=== PATIENT | male | born 1950 | race Asian ===

== ENCOUNTER 2021-12-15 17:45 | Outpatient (CLI) | payer MEDICARE ==
[2021-12-15 18:22] LABS: Hemoglobin 14.7 g/dL (13.5-17.5)
[2021-12-15 18:36] LABS: Anion Gap 15 mmol/L (10-20); BUN (Urea Nitrogen) 17 mg/dL (8.4-25.7); Calc. Creatinine Clearance 0 mL/min (70-130); Carbon Dioxide 26 mmol/L (23-31); Chloride 101 mmol/L (98-107); Glucose 153 mg/dL (80-115); Potassium 3.8 mmol/L (3.5-5.1); Sodium 138 mmol/L (136-145)
[2021-12-16 18:37] LABS: SARS-CoV-2 PCR by NAA Not Detected (NotDetected)
== END 2021-12-15 17:46 | disposition home or self-care (01) ==
LOC: LABBT 17:45
PROVIDERS: ATTEND Specialist
DX: Z01.818 Encounter for other preprocedural examination (principal); J34.2 Deviated nasal septum; J34.3 Hypertrophy of nasal turbinates; Z20.822 Contact with and (suspected) exposure to COVID-19
CPT/HCPCS: 80048; 85014; 85018; U0003; U0005; 93005; 93010

== ENCOUNTER 2021-12-22 07:43 | Outpatient (CLI) | payer MEDICARE ==
[2021-12-23 11:50] LABS: SARS-CoV-2 PCR by NAA Not Detected (NotDetected)
== END 2021-12-22 07:44 | disposition home or self-care (01) ==
LOC: LABBT 07:43
PROVIDERS: ATTEND Specialist
DX: Z01.812 Encounter for preprocedural laboratory examination (principal); R13.12 Dysphagia, oropharyngeal phase; Z20.822 Contact with and (suspected) exposure to COVID-19
CPT/HCPCS: U0003; U0005

== ENCOUNTER 2021-12-25 06:49 | Day surgery (SDC) | payer MEDICARE ==
[2021-12-15 14:39] VITALS: BMI 23.0
[2021-12-25] MEDS ORDERED: Fentanyl 100 MCG/2 ML VIAL ONE ×2 (07:01→10:08)
[2021-12-25] MEDS ORDERED: Lidocaine 4% Topical Sol 50 ML BOT ONE (07:07)
[2021-12-25] MEDS ORDERED: AFRIN NASAL MIST 15 ML BOT ONE ×3 (07:59→09:34)
[2021-12-25] MEDS ORDERED: EPINEPHrine 1 MG/ML AMP ONE ×2 (08:01→09:34)
[2021-12-25] MEDS ORDERED: Xylocaine 1% w/ Epi 1:100K 10 ML VIAL ONE ×2 (08:01→09:34)
[2021-12-25] MEDS ORDERED: Bacitracin Zinc Ointment 30 gm TUBE ONE (08:01)
[2021-12-25] MEDS ORDERED: Glycopyrrolate 0.2 MG/ML 5 ML SYRINGE ONE ×2 (08:44)
[2021-12-25] MEDS ORDERED: PHENYLEPHRINE-NS 100 MCG/ML 10 ML SYRINGE ONE (08:44)
[2021-12-25] MEDS ORDERED: PROPOFOL 200 MG/20 ML VIAL ONE (08:44)
[2021-12-25] MEDS ORDERED: Dexamethasone 20 MG/5 ML VIAL ONE (08:44)
[2021-12-25] MEDS ORDERED: Ondansetron PF 4 MG/2 ML Vial ONE (08:44)
[2021-12-25] MEDS ORDERED: Lidocaine 1% PF 5 ML VIAL ONE (08:44)
== END 2021-12-25 12:45 | disposition home or self-care (01) ==
LOC: SDC 06:49
PROVIDERS: ATTEND Specialist
PROC: 09SM0ZZ Reposition Nasal Septum, Open Approach (ICD-10-PCS; principal; 2021-12-25)
PROC: 09TL8ZZ Resection of Nasal Turbinate, Via Natural or Artificial Opening Endoscopic (ICD-10-PCS; 2021-12-25)
DX: J34.2 Deviated nasal septum (principal); J34.3 Hypertrophy of nasal turbinates; I10 Essential (primary) hypertension; M10.9 Gout, unspecified; E11.9 Type 2 diabetes mellitus without complications; Z87.891 Personal history of nicotine dependence; Z79.84 Long term (current) use of oral hypoglycemic drugs; Z79.899 Other long term (current) drug therapy
CPT/HCPCS: J0171; J1100; J2405; J2704; J3010

== ENCOUNTER 2022-01-14 10:52 | Outpatient (CLI) | payer MEDICARE | END 2022-01-14 10:53 | disposition home or self-care (01) | PROVIDERS: ATTEND Family Medicine | DX: R13.13 Dysphagia, pharyngeal phase (principal); R63.30 Feeding difficulties, unspecified | CPT/HCPCS: 74230 ==

== ENCOUNTER 2022-09-18 13:34 | Inpatient (IN) | payer MEDICARE, OTHER ==
[2022-09-18] MEDS ORDERED: HumaLOG 300 UNITS/3 ML VIAL SC PRN (21:29)
[2022-09-18] MEDS ORDERED: Dextrose 50% Abboject 50 ML SYRINGE SLOW IVP PRN (21:29)
[2022-09-18] MEDS ORDERED: Dextrose 5% in Water 1,000 ML IV PRN (21:29)
[2022-09-18] MEDS ORDERED: Enoxaparin Sodium 40 MG/0.4 ML SYRINGE SC SCH (21:30)
[2022-09-18] MEDS ORDERED: Amlodipine 5 MG TAB PO SCH (22:30)
[2022-09-18] MEDS ORDERED: guaiFENesin/DM ER PO SCH (22:30)
[2022-09-18] MEDS ORDERED: Meropenem 1 GM in Sodium Chloride 0.9% 100 ML IVPB SCH (22:45)
[2022-09-19] MEDS: Azithromycin 500 MG in Sodium Chloride 0.9% 250 ML 250 ML IVPB SCH (00:51)
[2022-09-19] MEDS ORDERED: Meropenem 1 GM in Sodium Chloride 0.9% 100 ML IVPB SCH (01:00)
[2022-09-19 04:03] LABS: Hemoglobin 11.7 g/dL (14.0-18.0); Mean Corpuscular HGB CONC 32.9 g/dL (32.0-36.0); Mean Corpuscular Hemoglobin 30.3 pg (27.0-31.0); Mean Corpuscular Volume 92.1 fL (78.0-98.0); Platelet Count 383 thou/uL (130-400); RBC Distribution Width 12.3 % (11.5-14.5); Red Blood Cell (RBC) Count 3.85 mill/uL (4.70-6.10)
[2022-09-19 04:16] LABS: Anion Gap 14 mmol/L (10-20); BUN (Urea Nitrogen) 13 mg/dL (8.4-25.7); Calc. Creatinine Clearance 0 mL/min (70-130); Calcium 8.4 mg/dL (7.8-10.44); Carbon Dioxide 22 mmol/L (23-31); Chloride 101 mmol/L (98-107); Estimated GFR 97; Glucose 162 mg/dL (80-115); Potassium 3.6 mmol/L (3.5-5.1); Sodium 133 mmol/L (136-145)
[2022-09-19 04:27] LABS: Band 3 % (5-11); Lymphocytes 3 % (21-51); MDiff Complete? YES; Monocytes 6 % (0-10); Neutrophil 88 % (42-75)
[2022-09-19] MEDS: Meropenem 1 GM in Sodium Chloride 0.9% 100 ML IVPB SCH ×3 (05:48→20:56)
[2022-09-19] MEDS ORDERED: Lactated Ringer's 1,000 ML IV SCH (07:30)
[2022-09-19] MEDS ORDERED: fentaNYL PF 100 MCG/2 ML SYRINGE ONE (07:31)
[2022-09-19] MEDS ORDERED: Phenylephrine 10 MG/ML VIAL ONE (07:32)
[2022-09-19] MEDS ORDERED: Rocuronium Bromide 10 MG/ML (10ML VIAL) ONE (08:00)
[2022-09-19] MEDS ORDERED: Glycopyrrolate 0.2 MG/ML 5 ML SYRINGE ONE (08:00)
[2022-09-19] MEDS ORDERED: NEOSTIGMINE 3 MG/3 ML SYR 3 MG/3 ML SYRINGE ONE (08:00)
[2022-09-19] MEDS ORDERED: PROPOFOL 200 MG/20 ML VIAL ONE (08:00)
[2022-09-19] MEDS ORDERED: EPINEPHrine 1 MG/ML AMP ONE (08:30)
[2022-09-19] MEDS ORDERED: Bupivacaine PF 0.5% 30 ML VIAL ONE (08:30)
[2022-09-19] MEDS ORDERED: traMADol HCl 50 MG TAB PO PRN (09:57)
[2022-09-19] MEDS ORDERED: Fentanyl 100 MCG/2 ML VIAL SLOW IVP PRN ×2 (09:57)
[2022-09-19] MEDS ORDERED: FENTANYL 50 MCG/ML 1 ML VIAL SLOW IVP PRN ×2 (10:04→10:05)
[2022-09-19] MEDS: Ondansetron PF 4 MG/2 ML Vial IVP PRN (10:16)
[2022-09-19] MEDS: HumaLOG 300 UNITS/3 ML VIAL SC PRN (11:20)
[2022-09-19] MEDS: Famotidine 20 MG TAB PO SCH ×2 (14:22→20:56)
[2022-09-19] MEDS: Amlodipine 5 MG TAB PO SCH (14:22)
[2022-09-19] MEDS: traMADol HCl 50 MG TAB PO PRN (14:22)
[2022-09-19] MEDS: Allopurinol 100 MG TAB PO SCH (14:23)
[2022-09-19] MEDS: guaiFENesin/DM ER PO SCH ×2 (14:26→20:56)
[2022-09-19] MEDS: Lactated Ringer's 1,000 ML IV SCH (19:30)
[2022-09-20] MEDS: Azithromycin 500 MG in Sodium Chloride 0.9% 250 ML 250 ML IVPB SCH (00:36)
[2022-09-20 04:00] LABS: #Monocytes 1.2 thou/uL (0.11-0.59); #Neutrophils 16.9 thou/uL (1.40-6.50); %Basophils 0.1 % (0.0-1.0); %Eosinophils 0.2 % (0.0-10.0); %Monocytes 6.1 % (0.0-10.0); %Neutrophils 88.6 % (42.0-75.0); Mean Corpuscular HGB CONC 31.8 g/dL (32.0-36.0); Mean Corpuscular Hemoglobin 29.5 pg (27.0-31.0); Mean Corpuscular Volume 92.9 fL (78.0-98.0); Mean Platelet Volume 7.9 fL (7.4-10.4); Platelet Count 374 thou/uL (130-400); RBC Distribution Width 12.4 % (11.5-14.5); Red Blood Cell (RBC) Count 3.39 mill/uL (4.70-6.10); White Blood Cell (WBC) Count 19.1 thou/uL (4.8-10.8)
[2022-09-20 04:18] LABS: Anion Gap 15 mmol/L (10-20); BUN (Urea Nitrogen) 19 mg/dL (8.4-25.7); Calc. Creatinine Clearance 0 mL/min (70-130); Calcium 8.1 mg/dL (7.8-10.44); Carbon Dioxide 21 mmol/L (23-31); Chloride 101 mmol/L (98-107); Estimated GFR 98; Glucose 137 mg/dL (80-115); Sodium 133 mmol/L (136-145)
[2022-09-20] MEDS: Meropenem 1 GM in Sodium Chloride 0.9% 100 ML IVPB SCH ×3 (06:21→20:42)
[2022-09-20] MEDS: Amlodipine 5 MG TAB PO SCH (09:06)
[2022-09-20] MEDS: guaiFENesin/DM ER PO SCH ×2 (09:06→19:35)
[2022-09-20] MEDS: Enoxaparin Sodium 40 MG/0.4 ML SYRINGE SC SCH (09:06)
[2022-09-20] MEDS: Allopurinol 100 MG TAB PO SCH (09:07)
[2022-09-20] MEDS: Famotidine 20 MG TAB PO SCH ×2 (09:07→19:35)
[2022-09-20] MEDS: HumaLOG 300 UNITS/3 ML VIAL SC PRN ×2 (11:12→18:09)
[2022-09-20] MEDS ORDERED: Sodium Chloride 0.45% 1,000 ML IV SCH (16:45)
[2022-09-20] MEDS: Lactated Ringer's 1,000 ML IV SCH (16:50)
[2022-09-20] MEDS: Ondansetron PF 4 MG/2 ML Vial IVP PRN (19:36)
[2022-09-20] MEDS: Acetaminophen 325 MG TAB PO PRN (20:42)
[2022-09-21 04:03] LABS: #Eosinphils 0.2 thou/uL (0.0-0.7); #Neutrophils 9.2 thou/uL (1.40-6.50); %Basophils 0.4 % (0.0-1.0); %Eosinophils 1.7 % (0.0-10.0); %Lymphocytes 8.4 % (21.0-51.0); %Monocytes 8.5 % (0.0-10.0); Hemoglobin 10.5 g/dL (14.0-18.0); Mean Corpuscular HGB CONC 32.9 g/dL (32.0-36.0); Mean Corpuscular Hemoglobin 30.3 pg (27.0-31.0); Mean Corpuscular Volume 92.2 fL (78.0-98.0); Mean Platelet Volume 7.8 fL (7.4-10.4); Platelet Count 372 thou/uL (130-400); RBC Distribution Width 12.4 % (11.5-14.5); Red Blood Cell (RBC) Count 3.46 mill/uL (4.70-6.10); White Blood Cell (WBC) Count 11.4 thou/uL (4.8-10.8)
[2022-09-21 04:19] LABS: Anion Gap 11 mmol/L (10-20); BUN (Urea Nitrogen) 12 mg/dL (8.4-25.7); Calc. Creatinine Clearance 0 mL/min (70-130); Calcium 7.8 mg/dL (7.8-10.44); Carbon Dioxide 28 mmol/L (23-31); Chloride 100 mmol/L (98-107); Estimated GFR 97; Glucose 135 mg/dL (80-115); Potassium 3.8 mmol/L (3.5-5.1); Sodium 135 mmol/L (136-145)
[2022-09-21] MEDS: Meropenem 1 GM in Sodium Chloride 0.9% 100 ML IVPB SCH (05:38)
[2022-09-21] MEDS: Allopurinol 100 MG TAB PO SCH (08:28)
[2022-09-21] MEDS: Amlodipine 5 MG TAB PO SCH (08:28)
[2022-09-21] MEDS: Enoxaparin Sodium 40 MG/0.4 ML SYRINGE SC SCH (08:29)
[2022-09-21] MEDS: Famotidine 20 MG TAB PO SCH ×2 (08:29→20:18)
[2022-09-21] MEDS ORDERED: Senokot S 8.6-50 MG TAB PO PRN (10:22)
[2022-09-21] MEDS: Lactated Ringer's 1,000 ML IV SCH (10:33)
[2022-09-21] MEDS: HumaLOG 300 UNITS/3 ML VIAL SC PRN ×3 (11:25→20:24)
[2022-09-21] MEDS: traMADol HCl 50 MG TAB PO PRN (11:26)
[2022-09-21 11:37] VITALS: BMI 21.9
[2022-09-21] MEDS: Acetaminophen 325 MG TAB PO PRN (16:42)
[2022-09-21] MEDS: Cefdinir 300 MG CAP PO SCH (20:18)
[2022-09-22 04:42] LABS: #Eosinphils 0.2 thou/uL (0.0-0.7); #Lymphocytes 1.4 thou/uL (1.20-3.40); #Monocytes 0.9 thou/uL (0.11-0.59); #Neutrophils 11.2 thou/uL (1.40-6.50); %Basophils 0.3 % (0.0-1.0); %Eosinophils 1.2 % (0.0-10.0); %Lymphocytes 9.8 % (21.0-51.0); %Monocytes 6.8 % (0.0-10.0); %Neutrophils 81.8 % (42.0-75.0); Hemoglobin 10.8 g/dL (14.0-18.0); Mean Corpuscular HGB CONC 32.3 g/dL (32.0-36.0); Mean Corpuscular Hemoglobin 29.8 pg (27.0-31.0); Mean Corpuscular Volume 92.3 fl (78.0-98.0); Mean Platelet Volume 7.7 fL (7.4-10.4); Platelet Count 437 thou/uL (130-400); RBC Distribution Width 12.5 % (11.5-14.5); Red Blood Cell (RBC) Count 3.64 mill/uL (4.70-6.10); White Blood Cell (WBC) Count 13.7 thou/uL (4.8-10.8)
[2022-09-22 05:03] LABS: Anion Gap 14 mmol/L (10-20); BUN (Urea Nitrogen) 13 mg/dL (8.4-25.7); Calc. Creatinine Clearance 92 mL/min (70-130); Calcium 8.1 mg/dL (7.8-10.44); Carbon Dioxide 26 mmol/L (23-31); Chloride 96 mmol/L (98-107); Estimated GFR 98; Glucose 143 mg/dL (80-115); Potassium 4.1 mmol/L (3.5-5.1); Sodium 132 mmol/L (136-145)
[2022-09-22] MEDS ORDERED: Furosemide 40 MG/4 ML VIAL SLOW IVP SCH (08:15)
[2022-09-22] MEDS: Polyethylene Glycol 3350 17 GM Packet PO SCH (09:14)
[2022-09-22] MEDS: Metoprolol Tartrate 25 MG TAB PO SCH ×2 (09:14→20:06)
[2022-09-22] MEDS: guaiFENesin ER 600 MG TAB PO SCH ×2 (09:14→20:05)
[2022-09-22] MEDS: Famotidine 20 MG TAB PO SCH ×2 (09:14→20:05)
[2022-09-22] MEDS: Allopurinol 100 MG TAB PO SCH (09:14)
[2022-09-22] MEDS: Enoxaparin Sodium 40 MG/0.4 ML SYRINGE SC SCH (09:14)
[2022-09-22] MEDS: Cefdinir 300 MG CAP PO SCH ×2 (09:14→20:05)
[2022-09-22] MEDS ORDERED: Lidocaine 5% Patch TD SCH (10:45)
[2022-09-22] MEDS: metFORMIN 500 MG TAB PO SCH (15:23)
[2022-09-22] MEDS ORDERED: Metoprolol Tartrate 25 MG TAB PO SCH (17:45)
[2022-09-22] MEDS: Transdermal Patch Removal TOP SCH (20:10)
[2022-09-23] MEDS ORDERED: Metoprolol Tartrate 5 MG/5 ML VIAL IVP SCH (09:17)
[2022-09-23] MEDS ORDERED: Metoprolol Tartrate 50 MG TAB PO SCH ×2 (09:30→21:00)
[2022-09-23] MEDS ORDERED: Metoprolol Tartrate 25 MG TAB PO SCH (10:00)
[2022-09-23] MEDS: Lidocaine 5% Patch TD SCH (10:20)
[2022-09-23] MEDS: Cefdinir 300 MG CAP PO SCH ×2 (10:20→20:57)
[2022-09-23] MEDS: Enoxaparin Sodium 40 MG/0.4 ML SYRINGE SC SCH (10:20)
[2022-09-23] MEDS: Famotidine 20 MG TAB PO SCH ×2 (10:21→20:58)
[2022-09-23] MEDS: guaiFENesin ER 600 MG TAB PO SCH ×2 (10:21→20:58)
[2022-09-23] MEDS: Polyethylene Glycol 3350 17 GM Packet PO SCH (10:22)
[2022-09-23] MEDS: Allopurinol 100 MG TAB PO SCH (10:22)
[2022-09-23] MEDS: Metoprolol Tartrate 25 MG TAB PO SCH ×4 (10:27→20:58)
[2022-09-23] MEDS: metFORMIN 500 MG TAB PO SCH (12:52)
[2022-09-23] MEDS: HumaLOG 300 UNITS/3 ML VIAL SC PRN (12:52)
[2022-09-23] MEDS: Transdermal Patch Removal TOP SCH (21:08)
[2022-09-24 04:27] LABS: ALT (SGPT) 79 U/L (8-55); AST (SGOT) 53 U/L (5-34); Albumin 2.4 g/dL (3.4-4.8); Alkaline Phosphatase 469 U/L (40-110); Anion Gap 14 mmol/L (10-20); BUN (Urea Nitrogen) 16 mg/dL (8.4-25.7); Bilirubin, Total 0.6 mg/dL (0.2-1.2); Calc. Creatinine Clearance 87 mL/min (70-130); Calcium 8.2 mg/dL (7.8-10.44); Carbon Dioxide 23 mmol/L (23-31); Chloride 98 mmol/L (98-107); Estimated GFR 97; Globulin 3.9 g/dL (2.4-3.5); Glucose 149 mg/dL (80-115); Protein, Total 6.3 g/dL (5.8-8.1); Sodium 131 mmol/L (136-145)
[2022-09-24 04:42] LABS: #Eosinphils 0.4 thou/uL (0.0-0.7); #Lymphocytes 1.1 thou/uL (1.20-3.40); #Monocytes 1.1 thou/uL (0.11-0.59); %Basophils 0.2 % (0.0-1.0); %Eosinophils 2.8 % (0.0-10.0); %Lymphocytes 8.4 % (21.0-51.0); %Monocytes 7.9 % (0.0-10.0); %Neutrophils 80.7 % (42.0-75.0); Hemoglobin 10.2 g/dL (14.0-18.0); Mean Corpuscular HGB CONC 32.5 g/dL (32.0-36.0); Mean Corpuscular Hemoglobin 29.9 pg (27.0-31.0); Mean Corpuscular Volume 92.1 fl (78.0-98.0); Mean Platelet Volume 7.6 fL (7.4-10.4); Platelet Count 473 thou/uL (130-400); RBC Distribution Width 12.8 % (11.5-14.5); White Blood Cell (WBC) Count 13.7 thou/uL (4.8-10.8)
[2022-09-24] MEDS: Metoprolol Tartrate 25 MG TAB PO SCH ×4 (04:57→20:32)
[2022-09-24] MEDS: HumaLOG 300 UNITS/3 ML VIAL SC PRN ×2 (06:05→11:42)
[2022-09-24] MEDS: Lidocaine 5% Patch TD SCH (09:40)
[2022-09-24] MEDS: Enoxaparin Sodium 40 MG/0.4 ML SYRINGE SC SCH (09:41)
[2022-09-24] MEDS: Famotidine 20 MG TAB PO SCH ×2 (09:41→20:32)
[2022-09-24] MEDS: guaiFENesin ER 600 MG TAB PO SCH ×2 (09:41→20:32)
[2022-09-24] MEDS: Allopurinol 100 MG TAB PO SCH (09:41)
[2022-09-24] MEDS: Polyethylene Glycol 3350 17 GM Packet PO SCH (09:41)
[2022-09-24] MEDS: Cefdinir 300 MG CAP PO SCH ×2 (09:41→20:32)
[2022-09-24] MEDS: metFORMIN 500 MG TAB PO SCH (11:25)
[2022-09-24] MEDS: Transdermal Patch Removal TOP SCH (20:32)
[2022-09-25] MEDS: Metoprolol Tartrate 25 MG TAB PO SCH ×3 (04:27→16:12)
[2022-09-25] MEDS: Cefdinir 300 MG CAP PO SCH (09:22)
[2022-09-25] MEDS: Allopurinol 100 MG TAB PO SCH (09:22)
[2022-09-25] MEDS: Polyethylene Glycol 3350 17 GM Packet PO SCH (09:22)
[2022-09-25] MEDS: guaiFENesin ER 600 MG TAB PO SCH (09:22)
[2022-09-25] MEDS: Enoxaparin Sodium 40 MG/0.4 ML SYRINGE SC SCH (09:22)
[2022-09-25] MEDS: Lidocaine 5% Patch TD SCH (09:22)
[2022-09-25] MEDS: Famotidine 20 MG TAB PO SCH (09:22)
[2022-09-25] MEDS: metFORMIN 500 MG TAB PO SCH (12:30)
[2022-09-25] MEDS: HumaLOG 300 UNITS/3 ML VIAL SC PRN (12:30)
[2022-09-25 12:52] VITALS: BP 124/62; TEMP 98.2
== END 2022-09-25 16:30 | disposition home or self-care (01) | DRG 853 ==
LOC: CCU 19:15 → 2NO 09-21 22:52
PROVIDERS: ADMIT Internal Medicine; ATTEND Family Medicine
PROC: 0BNK0ZZ Release Right Lung, Open Approach (ICD-10-PCS; principal; 2022-09-20)
DX: A41.9 Sepsis, unspecified organism (principal); J18.9 Pneumonia, unspecified organism; J86.9 Pyothorax without fistula; J96.01 Acute respiratory failure with hypoxia; J90 Pleural effusion, not elsewhere classified; I10 Essential (primary) hypertension; E78.5 Hyperlipidemia, unspecified; E11.9 Type 2 diabetes mellitus without complications; M10.9 Gout, unspecified; R13.10 Dysphagia, unspecified; K21.9 Gastro-esophageal reflux disease without esophagitis; Z79.84 Long term (current) use of oral hypoglycemic drugs; Z79.899 Other long term (current) drug therapy
CPT/HCPCS: 36415; 36416; 71045; 80048; 80053; 85025; 87070; 87077; 87186; 87205; 93005; 93010; 93306; 94640; J0171; J0456; J1650; J1815; J1940; J2185; J2370; J2405; J2704; J3490; J7050; J7120; J7620; S0020; U0003; U0005

== ENCOUNTER 2022-12-04 09:11 | Inpatient (IN) | payer OTHER, MEDICARE ==
[2022-12-04] MEDS ORDERED: Iopamidol-370 76% 500 ML 1 ML ONE (10:22)
[2022-12-04] MEDS ORDERED: levETIRAcetam 500 MG/5 ML VIAL ONE (10:36)
[2022-12-04] MEDS ORDERED: Pantoprazole 40 MG VIAL ONE (10:39)
[2022-12-04] MEDS ORDERED: Dextrose 5% in Water 1,000 ML IV PRN (12:33)
[2022-12-04] MEDS ORDERED: Dextrose 50% Abboject 50 ML SYRINGE SLOW IVP PRN (12:33)
[2022-12-04] MEDS: Sodium Chloride 0.9% 1,000 ML IV SCH (13:31)
[2022-12-04] MEDS: Famotidine/PF 20 mg/2ml Vial SLOW IVP SCH (20:49)
[2022-12-05] MEDS: Sodium Chloride 0.9% 1,000 ML IV SCH (01:45)
[2022-12-05 05:47] LABS: #Lymphocytes 1.5 thou/uL (1.20-3.40); #Monocytes 0.7 thou/uL (0.11-0.59); #Neutrophils 6.3 thou/uL (1.40-6.50); %Basophils 0.3 % (0.0-1.0); %Eosinophils 0.3 % (0.0-10.0); %Lymphocytes 17.5 % (21.0-51.0); %Monocytes 7.6 % (0.0-10.0); %Neutrophils 74.3 % (42.0-75.0); Hemoglobin 12.3 g/dL (14.0-18.0); Mean Corpuscular HGB CONC 33.6 g/dL (32.0-36.0); Mean Corpuscular Hemoglobin 29.6 pg (27.0-31.0); Mean Platelet Volume 7.4 fL (7.4-10.4); Platelet Count 264 10x3/uL (130-400); RBC Distribution Width 15.9 % (11.5-14.5); Red Blood Cell (RBC) Count 4.16 mill/uL (4.70-6.10); White Blood Cell (WBC) Count 8.5 10x3/uL (4.8-10.8)
[2022-12-05 06:13] LABS: ALT (SGPT) 16 U/L (8-55); AST (SGOT) 12 U/L (5-34); Albumin 3.5 g/dL (3.4-4.8); Alkaline Phosphatase 79 U/L (40-110); Anion Gap 8 mmol/L (10-20); BUN (Urea Nitrogen) 15 mg/dL (8.4-25.7); Bilirubin, Total 0.5 mg/dL (0.2-1.2); Calc. Creatinine Clearance 88 mL/min (70-130); Calcium 8.6 mg/dL (7.8-10.44); Carbon Dioxide 25 mmol/L (23-31); Chloride 110 mmol/L (98-107); Estimated GFR 97; Globulin 3.6 g/dL (2.4-3.5); Glucose 103 mg/dL (80-115); Potassium 3.1 mmol/L (3.5-5.1); Protein, Total 7.1 g/dL (5.8-8.1)
[2022-12-05 06:16] LABS: Sodium 140 mmol/L (136-145)
[2022-12-05] MEDS ORDERED: CEFAZOLIN 2 GM in Sodium Chloride 0.9% 100 ML IVPB SCH (07:00)
[2022-12-05] MEDS: Famotidine/PF 20 mg/2ml Vial SLOW IVP SCH ×2 (09:20→21:58)
[2022-12-05] MEDS ORDERED: Dexamethasone 4 MG in Sodium Chloride 0.9% 50 ML IVPB SCH (10:30)
[2022-12-05] MEDS ORDERED: levETIRAcetam in NS 1,000 MG in Premix Bag 1 BAG IVPB SCH (10:30)
[2022-12-05] MEDS ORDERED: Metoprolol Tartrate 5 MG/5 ML VIAL IVP PRN (10:32)
[2022-12-05] MEDS ORDERED: Electrolyte Replacement Protocol 1 EACH FS SCH (10:45)
[2022-12-05 11:57] LABS: PTT 30.5 sec (22.9-36.1)
[2022-12-05] MEDS ORDERED: Dexamethasone 4 mg/ml Vial SLOW IVP SCH (12:15)
[2022-12-05] MEDS ORDERED: Electrolyte Replacement Protocol FS PRN (12:15)
[2022-12-05] MEDS ORDERED: levETIRAcetam 500 MG/5 ML VIAL SLOW IVP SCH (12:30)
[2022-12-05] MEDS ORDERED: Potassium Chloride 20 MEQ in Premix Bag 1 BAG IVPB SCH (12:30)
[2022-12-05] MEDS: Dexamethasone 4 mg/ml Vial SLOW IVP SCH ×2 (16:41→21:58)
[2022-12-05] MEDS: Potassium Chloride 20 MEQ in Lactated Ringer's 1,000 ML IV SCH (17:23)
[2022-12-05] MEDS: HumaLOG 300 UNITS/3 ML VIAL SC PRN (18:41)
[2022-12-05] MEDS ORDERED: HumaLOG 300 UNITS/3 ML VIAL SC PRN (19:08)
[2022-12-05 20:13] LABS: Potassium 3.9 mmol/L (3.5-5.1)
[2022-12-05] MEDS: levETIRAcetam 500 MG/5 ML VIAL SLOW IVP SCH (21:58)
[2022-12-06 05:47] LABS: #Lymphocytes 1.1 thou/uL (1.20-3.40); #Monocytes 0.2 thou/uL (0.11-0.59); %Basophils 0.1 % (0.0-1.0); %Eosinophils 0.1 % (0.0-10.0); %Lymphocytes 20.9 % (21.0-51.0); %Monocytes 3.7 % (0.0-10.0); %Neutrophils 75.2 % (42.0-75.0); Hemoglobin 11.5 g/dL (14.0-18.0); Mean Corpuscular HGB CONC 32.8 g/dL (32.0-36.0); Mean Corpuscular Volume 88.4 fl (78.0-98.0); Mean Platelet Volume 7.8 fL (7.4-10.4); Platelet Count 247 10x3/uL (130-400); RBC Distribution Width 15.7 % (11.5-14.5); Red Blood Cell (RBC) Count 3.97 mill/uL (4.70-6.10); White Blood Cell (WBC) Count 5.3 10x3/uL (4.8-10.8)
[2022-12-06 06:18] LABS: Anion Gap 10 mmol/L (10-20); BUN (Urea Nitrogen) 19 mg/dL (8.4-25.7); Calc. Creatinine Clearance 83 mL/min (70-130); Calcium 8.4 mg/dL (7.8-10.44); Carbon Dioxide 25 mmol/L (23-31); Chloride 108 mmol/L (98-107); Estimated GFR 96; Glucose 149 mg/dL (80-115); Potassium 3.8 mmol/L (3.5-5.1); Sodium 139 mmol/L (136-145)
[2022-12-06] MEDS ORDERED: Lidocaine 1% (PF) 30 ML VIAL ONE (07:24)
[2022-12-06] MEDS ORDERED: EPINEPHrine 1 MG/ML AMP ONE (07:24)
[2022-12-06] MEDS ORDERED: Thrombin 5000 UNITS/5 ML VIAL ONE ×2 (07:24→19:36)
[2022-12-06] MEDS ORDERED: Neomycin-Polymyxin 1 ML AMP ONE ×2 (07:24→19:59)
[2022-12-06] MEDS ORDERED: Bacitracin Zinc Ointment 30 gm TUBE ONE ×2 (07:24→19:37)
[2022-12-06] MEDS ORDERED: CEFAZOLIN 2 GM VIAL ONE (07:29)
[2022-12-06] MEDS ORDERED: Sodium Chloride 0.9% 100 ML ONE (07:30)
[2022-12-06] MEDS ORDERED: Ondansetron PF 4 MG/2 ML Vial IVP PRN (07:39)
[2022-12-06] MEDS ORDERED: Labetalol HCl 100 MG/20 ML VIAL SLOW IVP PRN ×2 (07:39→12:02)
[2022-12-06] MEDS ORDERED: hydrALAZINE 20 MG/ML VIAL SLOW IVP PRN (07:39)
[2022-12-06] MEDS ORDERED: Docusate 100 MG CAP PO PRN (07:39)
[2022-12-06] MEDS ORDERED: Mag-Al 1200 mg/1200 mg/30 ML UDCUP PO PRN (07:39)
[2022-12-06] MEDS ORDERED: Acetaminophen 325 MG TAB PO PRN (07:39)
[2022-12-06] MEDS ORDERED: Promethazine HCl 25 MG/ML VIAL IM PRN ×2 (07:39→11:52)
[2022-12-06] MEDS ORDERED: Norepinephrine 4 MG/4 ML VIAL ONE (07:43)
[2022-12-06] MEDS ORDERED: Fentanyl 250 MCG/5 ML VIAL ONE ×2 (07:43→19:43)
[2022-12-06] MEDS ORDERED: Phenylephrine 10 MG/ML VIAL ONE ×2 (07:43→19:43)
[2022-12-06] MEDS ORDERED: Magnesium 2 GM/50 ML(in water) 2 GM in Premix Bag 1 BAG IVPB SCH ×2 (09:00→15:45)
[2022-12-06] MEDS ORDERED: Dexamethasone 20 MG/5 ML VIAL ONE (11:14)
[2022-12-06] MEDS ORDERED: Rocuronium Bromide 10 MG/ML (10ML VIAL) ONE ×2 (11:14→20:20)
[2022-12-06] MEDS ORDERED: PROPOFOL 200 MG/20 ML VIAL ONE ×2 (11:14→20:20)
[2022-12-06] MEDS ORDERED: Lidocaine 1% PF 5 ML VIAL ONE ×2 (11:14→20:20)
[2022-12-06] MEDS ORDERED: Ondansetron PF 4 MG/2 ML Vial ONE (11:14)
[2022-12-06] MEDS ORDERED: HYDROmorphone 2 MG/ML VIAL SLOW IVP PRN (11:52)
[2022-12-06] MEDS ORDERED: Ondansetron HCl/PF 4 MG/2 ML Vial IVP PRN (11:52)
[2022-12-06] MEDS ORDERED: PACU-Morphine 4MG/ML VIAL SLOW IVP PRN (11:52)
[2022-12-06] MEDS ORDERED: Promethazine HCl 25 MG/ML VIAL IVPB PRN (11:52)
[2022-12-06] MEDS: Morphine 4 MG/ML VIAL SLOW IVP PRN ×2 (13:00→23:29)
[2022-12-06] MEDS: Potassium Chloride 20 MEQ in Lactated Ringer's 1,000 ML IV SCH ×2 (13:03→15:54)
[2022-12-06] MEDS: Famotidine/PF 20 mg/2ml Vial SLOW IVP SCH ×2 (13:04→23:09)
[2022-12-06] MEDS: hydrALAZINE 20 MG/ML VIAL SLOW IVP PRN (13:13)
[2022-12-06] MEDS: niCARdipine 25 MG in Sodium Chloride 0.9% 250 ML 250 ML IVPB SCH (13:31)
[2022-12-06] MEDS: Dexamethasone 4 mg/ml Vial SLOW IVP SCH ×3 (15:06→23:39)
[2022-12-06] MEDS: levETIRAcetam 500 MG/5 ML VIAL SLOW IVP SCH ×2 (15:06→23:12)
[2022-12-06] MEDS: CEFAZOLIN 2 GM in Sodium Chloride 0.9% 100 ML IVPB SCH (15:07)
[2022-12-06 18:25] LABS: #Lymphocytes 0.4 thou/uL (1.20-3.40); #Monocytes 0.5 thou/uL (0.11-0.59); #Neutrophils 12.5 thou/uL (1.40-6.50); %Basophils 0.3 % (0.0-1.0); %Lymphocytes 3.3 % (21.0-51.0); %Monocytes 3.7 % (0.0-10.0); %Neutrophils 92.7 % (42.0-75.0); Hemoglobin 11.6 g/dL (14.0-18.0); Mean Corpuscular HGB CONC 33.1 g/dL (32.0-36.0); Mean Corpuscular Hemoglobin 29.1 pg (27.0-31.0); Mean Corpuscular Volume 87.7 fl (78.0-98.0); Mean Platelet Volume 7.8 fL (7.4-10.4); Platelet Count 229 10x3/uL (130-400); RBC Distribution Width 15.7 % (11.5-14.5); Red Blood Cell (RBC) Count 3.97 mill/uL (4.70-6.10); White Blood Cell (WBC) Count 13.5 10x3/uL (4.8-10.8)
[2022-12-06 18:48] LABS: Anion Gap 12 mmol/L (10-20); BUN (Urea Nitrogen) 14 mg/dL (8.4-25.7); Calc. Creatinine Clearance 74 mL/min (70-130); Carbon Dioxide 24 mmol/L (23-31); Chloride 103 mmol/L (98-107); Estimated GFR 93; Glucose 268 mg/dL (80-115); Potassium 3.5 mmol/L (3.5-5.1); Sodium 135 mmol/L (136-145)
[2022-12-06] MEDS ORDERED: Lidocaine 0.5%/Epinephrine 1:200,000 50 ml Vial ONE (19:43)
[2022-12-06] MEDS ORDERED: CEFAZOLIN 2 GM in Sodium Chloride 0.9% 100 ML IVPB SCH (19:45)
[2022-12-06 21:10] LABS: PTT 23.7 sec (22.9-36.1); Prothrombin Time 13.2 sec (12.0-14.7)
[2022-12-06] MEDS: Potassium Chloride 20 MEQ in Premix Bag 1 BAG IVPB SCH (23:31)
[2022-12-07] MEDS: Potassium Chloride 20 MEQ in Premix Bag 1 BAG IVPB SCH (00:55)
[2022-12-07] MEDS: CEFAZOLIN 2 GM in Sodium Chloride 0.9% 100 ML IVPB SCH (00:55)
[2022-12-07] MEDS: Morphine 4 MG/ML VIAL SLOW IVP PRN ×2 (01:56→06:20)
[2022-12-07 02:17] LABS: #Lymphocytes 0.8 thou/uL (1.20-3.40); #Monocytes 0.6 thou/uL (0.11-0.59); #Neutrophils 9.1 thou/uL (1.40-6.50); %Basophils 0.1 % (0.0-1.0); %Eosinophils 0.1 % (0.0-10.0); %Lymphocytes 7.6 % (21.0-51.0); %Monocytes 5.7 % (0.0-10.0); %Neutrophils 86.5 % (42.0-75.0); Hemoglobin 11.1 g/dL (14.0-18.0); Mean Corpuscular HGB CONC 32.7 g/dL (32.0-36.0); Mean Corpuscular Hemoglobin 29.1 pg (27.0-31.0); Mean Corpuscular Volume 88.9 fl (78.0-98.0); Mean Platelet Volume 7.8 fL (7.4-10.4); Platelet Count 222 10x3/uL (130-400); RBC Distribution Width 15.8 % (11.5-14.5); Red Blood Cell (RBC) Count 3.82 mill/uL (4.70-6.10); White Blood Cell (WBC) Count 10.5 10x3/uL (4.8-10.8)
[2022-12-07 02:20] LABS: Bilirubin Negative (Negative); Blood, Urine Negative (Negative); Clarity Clear (Clear); Glucose, Urine (Dipstick) Normal (Negative); Ketone, Urine Negative (Negative); Leukocyte Negative Leu/uL (Negative); Nitrite Negative (Negative); Protein, Urine (Dipstick) Negative (Neg-Trace); RBC/HPF 0-3 HPF (0-3); Specific Gravity, Urine 1.005 (1.002-1.036); Squamous Epithelial None Seen HPF (0-3); Urobilinogen Normal mg/dL (Less than 2); WBC/HPF 0-3 HPF (0-3); pH, Urine 6.5 (5.0-9.0)
[2022-12-07 02:37] LABS: Anion Gap 12 mmol/L (10-20); BUN (Urea Nitrogen) 12 mg/dL (8.4-25.7); Calc. Creatinine Clearance 86 mL/min (70-130); Carbon Dioxide 23 mmol/L (23-31); Chloride 107 mmol/L (98-107); Potassium 4.1 mmol/L (3.5-5.1); Sodium 138 mmol/L (136-145)
[2022-12-07 02:38] LABS: Estimated GFR 96; Glucose 149 mg/dL (80-115); Magnesium 2.3 mg/dL (1.6-2.6)
[2022-12-07] MEDS: Sodium Chloride 0.9% 1,000 ML IV SCH ×5 (03:02→23:56)
[2022-12-07] MEDS: niCARdipine 25 MG in Sodium Chloride 0.9% 250 ML 250 ML IVPB SCH ×3 (07:56→14:26)
[2022-12-07 08:17] LABS: Anion Gap 11 mmol/L (10-20); BUN (Urea Nitrogen) 10 mg/dL (8.4-25.7); Calc. Creatinine Clearance 92 mL/min (70-130); Carbon Dioxide 26 mmol/L (23-31); Chloride 106 mmol/L (98-107); Estimated GFR 97; Glucose 138 mg/dL (80-115); Potassium 3.7 mmol/L (3.5-5.1); Sodium 139 mmol/L (136-145)
[2022-12-07] MEDS: levETIRAcetam 500 MG/5 ML VIAL SLOW IVP SCH ×2 (09:29→21:17)
[2022-12-07] MEDS: Dexamethasone 4 mg/ml Vial SLOW IVP SCH ×4 (09:30→21:18)
[2022-12-07] MEDS: HYDROcodone/Acetaminophen 7.5/325 mg Tablet PO PRN ×2 (10:59→17:32)
[2022-12-07] MEDS ORDERED: Pantoprazole 40 MG VIAL IVP SCH (11:00)
[2022-12-07] MEDS: niCARdipine 50 MG in Sodium Chloride 0.9% 250 ML 230 ML IVPB SCH (16:50)
[2022-12-07] MEDS: HumaLOG 300 UNITS/3 ML VIAL SC PRN (17:04)
[2022-12-07] MEDS: Pantoprazole 40 MG VIAL IVP SCH (21:17)
[2022-12-07] MEDS: diphenhydrAMINE 50 MG/ML VIAL IVP PRN (21:31)
[2022-12-08] MEDS: niCARdipine 50 MG in Sodium Chloride 0.9% 250 ML 230 ML IVPB SCH (04:34)
[2022-12-08] MEDS: HumaLOG 300 UNITS/3 ML VIAL SC PRN ×3 (04:40→17:25)
[2022-12-08] MEDS: Sodium Chloride 0.9% 1,000 ML IV SCH ×5 (04:41→20:36)
[2022-12-08 05:02] LABS: #Lymphocytes 0.6 thou/uL (1.20-3.40); #Monocytes 0.1 thou/uL (0.11-0.59); #Neutrophils 4.6 thou/uL (1.40-6.50); %Eosinophils 0.1 % (0.0-10.0); %Lymphocytes 11.4 % (21.0-51.0); %Monocytes 2.1 % (0.0-10.0); %Neutrophils 86.4 % (42.0-75.0); Hemoglobin 10.3 g/dL (14.0-18.0); Mean Corpuscular HGB CONC 32.4 g/dL (32.0-36.0); Mean Corpuscular Volume 89.4 fl (78.0-98.0); Mean Platelet Volume 8.7 fL (7.4-10.4); Platelet Count 171 10x3/uL (130-400); RBC Distribution Width 15.6 % (11.5-14.5); Red Blood Cell (RBC) Count 3.54 mill/uL (4.70-6.10); White Blood Cell (WBC) Count 5.3 10x3/uL (4.8-10.8)
[2022-12-08 05:17] LABS: ALT (SGPT) Less than 7 U/L (8-55); AST (SGOT) 12 U/L (5-34); Albumin 2.9 g/dL (3.4-4.8); Alkaline Phosphatase 61 U/L (40-110); Anion Gap 10 mmol/L (10-20); BUN (Urea Nitrogen) 13 mg/dL (8.4-25.7); Bilirubin, Total 0.4 mg/dL (0.2-1.2); Calc. Creatinine Clearance 90 mL/min (70-130); Calcium 7.8 mg/dL (7.8-10.44); Carbon Dioxide 24 mmol/L (23-31); Chloride 108 mmol/L (98-107); Estimated GFR 97; Globulin 3.1 g/dL (2.4-3.5); Glucose 180 mg/dL (80-115); Sodium 138 mmol/L (136-145)
[2022-12-08] MEDS: Pantoprazole 40 MG VIAL IVP SCH ×2 (08:21→20:37)
[2022-12-08] MEDS: Dexamethasone 4 mg/ml Vial SLOW IVP SCH ×3 (08:22→20:37)
[2022-12-08] MEDS: levETIRAcetam 500 MG/5 ML VIAL SLOW IVP SCH ×2 (08:25→20:37)
[2022-12-08] MEDS ORDERED: Amlodipine 10 MG TAB PO SCH (10:15)
[2022-12-08] MEDS: hydrALAZINE 20 MG/ML VIAL SLOW IVP PRN (21:01)
[2022-12-09] MEDS: diphenhydrAMINE 50 MG/ML VIAL IVP PRN (00:44)
[2022-12-09] MEDS: Sodium Chloride 0.9% 1,000 ML IV SCH ×5 (00:44→20:05)
[2022-12-09] MEDS: Dexamethasone 4 mg/ml Vial SLOW IVP SCH ×4 (03:38→20:00)
[2022-12-09 03:56] LABS: #Lymphocytes 0.7 thou/uL (1.20-3.40); #Monocytes 0.3 thou/uL (0.11-0.59); #Neutrophils 7.6 thou/uL (1.40-6.50); %Basophils 0.1 % (0.0-1.0); %Eosinophils 0.2 % (0.0-10.0); %Lymphocytes 7.5 % (21.0-51.0); %Monocytes 3.8 % (0.0-10.0); %Neutrophils 88.3 % (42.0-75.0); Hemoglobin 11.4 g/dL (14.0-18.0); Mean Corpuscular HGB CONC 32.7 g/dL (32.0-36.0); Mean Corpuscular Hemoglobin 28.7 pg (27.0-31.0); Mean Platelet Volume 8.2 fL (7.4-10.4); Platelet Count 214 10x3/uL (130-400); Red Blood Cell (RBC) Count 3.98 mill/uL (4.70-6.10); White Blood Cell (WBC) Count 8.6 10x3/uL (4.8-10.8)
[2022-12-09 04:12] LABS: ALT (SGPT) 18 U/L (8-55); AST (SGOT) 16 U/L (5-34); Albumin 3.1 g/dL (3.4-4.8); Alkaline Phosphatase 62 U/L (40-110); Anion Gap 11 mmol/L (10-20); BUN (Urea Nitrogen) 15 mg/dL (8.4-25.7); Bilirubin, Total 0.4 mg/dL (0.2-1.2); Calc. Creatinine Clearance 99 mL/min (70-130); Calcium 8.1 mg/dL (7.8-10.44); Carbon Dioxide 24 mmol/L (23-31); Chloride 104 mmol/L (98-107); Estimated GFR 100; Globulin 3.3 g/dL (2.4-3.5); Glucose 137 mg/dL (80-115); Potassium 3.5 mmol/L (3.5-5.1); Protein, Total 6.4 g/dL (5.8-8.1); Sodium 135 mmol/L (136-145)
[2022-12-09] MEDS: hydrALAZINE 20 MG/ML VIAL SLOW IVP PRN (04:15)
[2022-12-09] MEDS ORDERED: Potassium Chloride 20 MEQ TAB PO SCH (08:00)
[2022-12-09] MEDS: Metoprolol Tartrate 50 MG TAB PO SCH ×2 (09:04→20:00)
[2022-12-09] MEDS: levETIRAcetam 500 MG/5 ML VIAL SLOW IVP SCH ×2 (09:04→20:00)
[2022-12-09] MEDS: Allopurinol 100 MG TAB PO SCH (09:04)
[2022-12-09] MEDS: metFORMIN 500 MG TAB PO SCH ×2 (09:04→16:37)
[2022-12-09] MEDS: Amlodipine 5 MG TAB PO SCH (09:04)
[2022-12-09] MEDS: Pantoprazole 40 MG VIAL IVP SCH ×2 (09:12→20:00)
[2022-12-09] MEDS: HumaLOG 300 UNITS/3 ML VIAL SC PRN (11:58)
[2022-12-09] MEDS ORDERED: Dexamethasone 4 mg/ml Vial SLOW IVP SCH (15:00)
[2022-12-09 16:11] LABS: Bacteria/HPF None Seen HPF (None Seen); Bilirubin Negative (Negative); Blood, Urine Negative (Negative); CAUTI Indications for Culture Dysuria,urgency,freq; Clarity Clear (Clear); Glucose, Urine (Dipstick) Normal (Negative); Ketone, Urine Negative (Negative); Leukocyte Negative Leu/uL (Negative); Nitrite Negative (Negative); Protein, Urine (Dipstick) Negative (Neg-Trace); RBC/HPF 0-3 HPF (0-3); Specific Gravity, Urine 1.014 (1.002-1.036); Squamous Epithelial None Seen HPF (0-3); Urobilinogen Normal mg/dL (Less than 2); WBC/HPF None Seen HPF (0-3); pH, Urine 6.5 (5.0-9.0)
[2022-12-09 16:15] LABS: Urine Culture Reflex No No
[2022-12-09 16:24] VITALS: BMI 21.1
[2022-12-10] MEDS: Sodium Chloride 0.9% 1,000 ML IV SCH ×4 (00:29→12:23)
[2022-12-10] MEDS: Dexamethasone 4 mg/ml Vial SLOW IVP SCH ×4 (02:01→19:37)
[2022-12-10] MEDS: metFORMIN 500 MG TAB PO SCH ×2 (08:09→18:28)
[2022-12-10] MEDS: Amlodipine 5 MG TAB PO SCH (08:24)
[2022-12-10] MEDS: Pantoprazole 40 MG VIAL IVP SCH (08:24)
[2022-12-10] MEDS: Metoprolol Tartrate 50 MG TAB PO SCH (08:25)
[2022-12-10] MEDS: Allopurinol 100 MG TAB PO SCH (08:25)
[2022-12-10] MEDS: levETIRAcetam 500 MG/5 ML VIAL SLOW IVP SCH (08:25)
[2022-12-10 10:47] VITALS: BP 137/82
[2022-12-10] MEDS: HumaLOG 300 UNITS/3 ML VIAL SC PRN (12:24)
[2022-12-10 17:51] VITALS: TEMP 98.3
[2022-12-11] MEDS ORDERED: Dexamethasone 4 mg/ml Vial SLOW IVP SCH (07:30)
[2022-12-12] MEDS ORDERED: Dexamethasone 4 mg/ml Vial SLOW IVP SCH (15:00)
[2022-12-13] MEDS ORDERED: Dexamethasone 4 mg/ml Vial SLOW IVP SCH (07:45)
[2022-12-15] MEDS ORDERED: Dexamethasone 4 mg/ml Vial SLOW IVP SCH (07:45)
[2022-12-17] MEDS ORDERED: Dexamethasone 4 mg/ml Vial SLOW IVP SCH (07:45)
== END 2022-12-10 20:04 | DRG 25 ==
LOC: ERS 09:11 → ERHOLD 10:31 → NEURO 18:54 → CCU 12-06 07:41
PROVIDERS: ADMIT Internal Medicine; ATTEND Internal Medicine
PROC: 00C30ZZ Extirpation of Matter from Intracranial Epidural Space, Open Approach (ICD-10-PCS; principal; 2022-12-06)
PROC: 00B70ZZ Excision of Cerebral Hemisphere, Open Approach (ICD-10-PCS; 2022-12-06)
DX: C71.1 Malignant neoplasm of frontal lobe (principal); G93.6 Cerebral edema; I62.1 Nontraumatic extradural hemorrhage; G97.61 Postprocedural hematoma of a nervous system organ or structure following a nervous system procedure; J90 Pleural effusion, not elsewhere classified; Z20.822 Contact with and (suspected) exposure to COVID-19; I10 Essential (primary) hypertension; E11.9 Type 2 diabetes mellitus without complications; M10.9 Gout, unspecified; E87.6 Hypokalemia; Z79.84 Long term (current) use of oral hypoglycemic drugs; Z79.899 Other long term (current) drug therapy
CPT/HCPCS: 36415; 36416; 70450; 71260; 74177; 74230; 80048; 80053; 81001; 83735; 83930; 83935; 84300; 85025; 85610; 85730; 88307; 88331; 94660; 96374; 96375; C1713; C9113; J0171; J0360; J1100; J1200; J1650; J1815; J1953; J2001; J2270; J2370; J2405; J2704; J3010; J3475; J3480; J3490; J7050; J7120; Q9967; S0028; U0003; U0005

== ENCOUNTER 2023-01-07 12:52 | Outpatient (CLI) | payer OTHER | END 2023-01-07 12:53 | disposition home or self-care (01) | LOC: SCSMRI 12:52 | PROVIDERS: ATTEND Radiology Radiation Oncology | DX: C71.1 Malignant neoplasm of frontal lobe (principal); Z98.890 Other specified postprocedural states | CPT/HCPCS: 70250; 70553 ==

== ENCOUNTER 2024-04-20 10:38 | Outpatient (CLI) | payer MEDICARE | END 2024-04-20 10:39 | disposition home or self-care (01) | LOC: MRI 10:38 | PROVIDERS: ATTEND Radiology Radiation Oncology | DX: C71.1 Malignant neoplasm of frontal lobe (principal); G93.9 Disorder of brain, unspecified | CPT/HCPCS: 70553 ==

== ENCOUNTER 2024-06-21 08:41 | Outpatient (CLI) | payer MEDICARE ==
[2024-06-21] MEDS ORDERED: Magnevist 469MG/ML 20 ML VIAL ONE (11:16)
== END 2024-06-21 08:42 | disposition home or self-care (01) ==
LOC: MRI 08:41
PROVIDERS: ATTEND Internal Medicine Hematology & Oncology
DX: C71.1 Malignant neoplasm of frontal lobe (principal); G93.9 Disorder of brain, unspecified
CPT/HCPCS: 70553; 76377; A9579

== ENCOUNTER 2024-08-17 09:48 | Outpatient (CLI) | payer MEDICARE | END 2024-08-17 09:49 | disposition home or self-care (01) | LOC: MRI 09:48 | PROVIDERS: ATTEND Internal Medicine Hematology & Oncology | DX: C71.1 Malignant neoplasm of frontal lobe (principal); Z98.890 Other specified postprocedural states | CPT/HCPCS: 70553; 76376 ==

== ENCOUNTER 2024-10-19 08:40 | Outpatient (CLI) | payer MEDICARE | END 2024-10-19 08:41 | disposition home or self-care (01) | LOC: MRI 08:40 | PROVIDERS: ATTEND Internal Medicine Hematology & Oncology | DX: C71.1 Malignant neoplasm of frontal lobe (principal); R90.82 White matter disease, unspecified; Z98.890 Other specified postprocedural states | CPT/HCPCS: 70553; 76376 ==

== ENCOUNTER 2024-12-13 09:04 | Outpatient (CLI) | payer MEDICARE ==
[2024-12-13] MEDS ORDERED: Magnevist 469MG/ML 20 ML VIAL ONE (09:43)
== END 2024-12-13 09:05 | disposition home or self-care (01) ==
LOC: MRI 09:04
PROVIDERS: ATTEND Internal Medicine Hematology & Oncology
DX: C71.1 Malignant neoplasm of frontal lobe (principal); G93.89 Other specified disorders of brain
CPT/HCPCS: 70553; 76376